=== PATIENT | female | born 1975 | race Caucasian/White ===

== ENCOUNTER 2016-08-22 19:15 | Emergency (ER) | payer OTHER ==
[2016-08-22 22:08] LABS: BASO % 0.2 % (0.1-1.2); EOS # 0.2 10_X3_uL (0.0-0.4); EOS % 2.3 % (0.7-5.8); GRAN # 5.1 10_X3_uL (1.6-6.1); GRAN % 53.5 % (34.0-71.1); HEMATOCRIT 39.5 % (34-45); HEMOGLOBIN 13.7 g/dL (11.2-15.7); LYMPH # 3.6 10_X3_uL (1.2-3.7); LYMPH % 37.1 % (19.3-51.7); MEAN CORPUSCULAR HEMOGLOBIN 30.4 pg (27.0-33.0); MEAN CORPUSCULAR HGB CONC 34.7 g/dL (32.0-36.0); MEAN CORPUSCULAR VOLUME 87.6 fL (79-95); MEAN PLATELET VOLUME 12.4 fl (7.5-11.5); MONO # 0.7 10_X3_uL (0.2-0.9); MONO % 6.9 % (4.7-12.5); PLATELET COUNT 246 x10_3/uL (182-369); RED BLOOD COUNT 4.51 x10_6/uL (3.9-5.2); RED CELL DISTRIBUTION WIDTH 13.4 % (11.7-14.4); WHITE BLOOD COUNT 9.6 x10_3/uL (4.0-10.0)
[2016-08-22 22:13] LABS: URINE BILIRUBIN NEGATIVE (NEGATIVE); URINE BLOOD TRACE (NEGATIVE); URINE KETONE NEGATIVE (NEGATIVE); URINE LEUKOCYTE ESTERASE NEGATIVE (NEGATIVE); URINE NITRATE NEGATIVE (NEGATIVE); URINE PROTEIN TRACE (NEGATIVE); UROBILINOGEN NORMAL mg/dL (<1.0)
[2016-08-22 22:24] LABS: ALBUMIN 3.9 gm/dL (3.4-5.0); ALKALINE PHOSPHATASE 86 U/L (50-136); ALT/SGPT 14 U/L (3.5-33.9); AMYLASE 32 U/L (15.62-74.58); AST/SGOT 9 U/L (7.04-26.96); BILIRUBIN,TOTAL 0.23 mg/dL (0.0-1.0); BLOOD UREA NITROGEN 9 mg/dL (7-18); CALCIUM 8.9 mg/dL (8.7-10.7); CARBON DIOXIDE 22 mmol/L (21-32); CREATININE 0.5 mg/dL (0.6-1.3); GLUCOSE,RANDOM 314 mg/dL (70-99); LIPASE 39 U/L (6.75-60.75); SODIUM 136 mmol/L (136-145); TOTAL PROTEIN 6.5 gm/dL (6.4-8.2)
[2016-08-22 22:28] LABS: URINE BACTERIA TRACE (NONE SEEN); URINE GLUCOSE (UA) 1000 mg/dL (NORMAL); URINE RBC 0-5 /[HPF] (0-2); URINE WBC 0-5 /[HPF] (0-5)
== END 2016-08-23 00:28 | disposition home or self-care (01) ==
LOC: ER 19:15
PROVIDERS: Emergency Medicine
DX: M54.2 Cervicalgia (principal); M54.9 Dorsalgia, unspecified; M25.571 Pain in right ankle and joints of right foot; R10.9 Unspecified abdominal pain; R51 Headache; V47.0XXA Car driver injured in collision with fixed or stationary object in nontraffic accident, initial encounter; Y92.413 State road as the place of occurrence of the external cause; E11.9 Type 2 diabetes mellitus without complications; F31.9 Bipolar disorder, unspecified; F17.210 Nicotine dependence, cigarettes, uncomplicated; Z79.84 Long term (current) use of oral hypoglycemic drugs; Z88.2 Allergy status to sulfonamides; Z88.8 Allergy status to other drugs, medicaments and biological substances
CPT/HCPCS: 36415; 70450; 72125; 72128; 72131; 73600; 74150; 80053; 80307; 81001; 82150; 83690; 84703; 85025; 96372; 99070; 99284-25